=== PATIENT | female | born 1980 ===

== ENCOUNTER 2016-03-11 15:36 | Emergency (ER) | payer MEDICAID, OTHER ==
[~2016-03-11] VITALS: Ht 180.3 cm; Wt 45.5 kg
[2016-03-11 15:45] VITALS: PULSE 75; RESP 20; O2SAT 100
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
[2016-03-11] MEDS ORDERED: Ketorolac 30 mg/mL 2 mL Inj IM ONE (16:55)
== END 2016-03-11 17:22 | disposition home or self-care (01) ==
LOC: SED 16:20
DX: M54.9 Dorsalgia, unspecified (principal); W22.09XA Striking against other stationary object, initial encounter; Y93.89 Activity, other specified; Y92.89 Other specified places as the place of occurrence of the external cause; Y99.8 Other external cause status; G89.29 Other chronic pain; M54.2 Cervicalgia; Z76.5 Malingerer [conscious simulation]; J45.909 Unspecified asthma, uncomplicated; F17.200 Nicotine dependence, unspecified, uncomplicated
CPT/HCPCS: 96372; 99283; J1885